=== PATIENT | female | born 1960 | race Caucasian/White ===

== ENCOUNTER 2022-08-23 15:31 | Outpatient (CLI) | payer OTHER, SELFPAY ==
[2022-08-23 22:57] LABS: Basophils Absolute Auto 0.05 K/uL (0.00-0.30); Basophils Percent Auto 0.7 % (0.0-3.0); Eosinophils Absolute Auto 0.23 K/uL (0.00-0.50); Eosinophils Percent Auto 3.2 % (0.0-7.0); Hematocrit 40.8 % (33.0-51.0); Hemoglobin* 13.5 gm/dL (12.0-16.0); Immature Granulocytes Abs Auto 0.01 K/uL (0.00-0.30); Immature Granulocytes Pct Auto 0.1 %; Lymphocytes Absolute Auto 2.55 K/uL (0.90-2.90); Mean Corpuscular HGB Conc 33 gm/dL (32-36); Mean Corpuscular Hemoglobin 32 pg (26-34); Mean Corpuscular Volume 96 fL (80-100); Monocytes Percent Auto 5.2 % (0.0-11.0); Neutrophils Absolute Auto 3.87 K/uL (1.7-7.0); Neutrophils Percent Auto 54.8 % (42.0-72.0); Platelet Count* 250 K/uL (140-440); RDW Coefficient of Variation % 12.3 % (11.5-15.5); Red Blood Count 4.27 m/uL (4.00-5.20); Slide Review Reflex No; White Blood Count* 7.08 K/uL (4.50-11.00)
[2022-08-23 23:47] LABS: Thyroid Stimulating Hormone* 0.677 uIU/mL (0.270-4.20)
[2022-08-23 23:55] LABS: Erythrocyte SedimentationRate* 2 mm/hr (2-20)
[2022-08-26 10:18] LABS: Rheumatoid Factor <10 IU/mL (0-14)
[2022-08-26 16:11] LABS: Anti-Nuclear Ab(ANA)IgG ELISA None Detected (None Detected)
== END 2022-08-23 15:32 | disposition home or self-care (01) ==
LOC: FBOREF 15:32
PROVIDERS: Otolaryngology; Visit Provider Family Medicine
DX: Z11.9 Encounter for screening for infectious and parasitic diseases, unspecified (principal); Z13.29 Encounter for screening for other suspected endocrine disorder
CPT/HCPCS: 84443; 85025; 85651; 86039; 86431; 86618

== ENCOUNTER 2022-09-01 15:52 | Outpatient (CLI) | payer OTHER, SELFPAY ==
--- NOTE | 2022-09-01 16:00 | CRLHL7_ITS ---
For Patients: As a result of the Century Cures Act, medical imaging exams and procedure reports are released immediately into your electronic medical record. You may view this report before your referring provider. If you have questions, please contact your health care provider. INDICATION: Sinusitis. TECHNIQUE: Noncontrast CT images acquired through the paranasal sinuses. COMPARISON: None. FINDINGS: No air-fluid levels to suggest acute sinusitis. Postsurgical changes of endoscopic sinus surgery including right maxillary antrostomy. Mild mucosal thickening in the maxillary sinuses. The left ethmoid infundibulum is opacified. The right maxillary outflow tract is patent. [id number] mucosal thickening in the right frontal sinus. Mild mucosal thickening in the frontal recesses. Mild mucosal thickening in a ethmoid air cells. Minimal mucosal thickening in the sphenoid sinuses. The sphenoethmoidal recesses are clear. Mild 2 mm leftward nasal septal deviation. No nasal cavity masses. The mastoid air cells are clear. Rounded, mildly hyperattenuating lesion along the right interhemispheric falx measuring approximately 1.8 cm (series 4, image 129). IMPRESSION: 1. Mild paranasal sinus mucosal disease. No air-fluid levels to suggest acute sinusitis. 2. Postsurgical changes of endoscopic sinus surgery. 3. Mild leftward nasal septal deviation. 4. Hyperattenuating lesion along the right interhemispheric falx is incompletely characterized. Contrast-enhanced brain MRI would be recommended for further evaluation if not previously performed. Please note that all CT scans at this facility use dose modulation, iterative reconstruction, and/or weight-based dosing when appropriate to reduce radiation dose to as low as reasonably achievable. Dictated by Antonio Dewitt MD @ 09/01/2022 6:03:38 PM (Electronically Signed)
== END 2022-09-01 15:53 | disposition home or self-care (01) ==
LOC: CT 15:54
PROVIDERS: Visit Provider Otolaryngology
DX: J32.9 Chronic sinusitis, unspecified (principal); J34.2 Deviated nasal septum; G93.9 Disorder of brain, unspecified
CPT/HCPCS: 70486

== ENCOUNTER 2022-09-27 13:46 | Outpatient (CLI) | payer OTHER, SELFPAY ==
--- NOTE | 2022-09-27 14:30 | CRLHL7_ITS ---
For Patients: As a result of the Century Cures Act, medical imaging exams and procedure reports are released immediately into your electronic medical record. You may view this report before your referring provider. If you have questions, please contact your health care provider. INDICATION: Right falx lesion. TECHNIQUE: Multiplanar multisequence MR imaging acquired through the brain prior to and following intravenous contrast. COMPARISON: CT sinus 09/01/2022. FINDINGS: Homogeneously enhancing dural-based mass along the mid right interhemispheric falx measuring 1.9 x 1.8 x 2.2 cm (AP/TR/CC). There is local mass effect on the right greater left parasagittal frontal lobes without parenchymal edema. Prominence of the ventricles and sulci compatible with mild diffuse cerebral volume loss. No midline shift or hydrocephalus. Minimal FLAIR hyperintensities in the supratentorial white matter may represent sequela of chronic microvascular ischemic changes. No pathologic intra-axial enhancement. No intracranial hemorrhage or pathologic extra-axial fluid collection. No diffusion restriction to suggest acute infarction. The major arterial flow voids of the skullbase are preserved. The globes are symmetric. [id number] maxillary sinus mucosal thickening. The mastoid air cells are clear. IMPRESSION: 1. Homogeneously enhancing 2.2 cm dural-based lesion along the mid right interhemispheric falx, most compatible with meningioma. There is mild local mass effect without parenchymal edema. 2. No acute intracranial abnormality. Dictated by Antonio Dewitt MD @ 09/27/2022 5:57:14 PM (Electronically Signed)
== END 2022-09-27 13:47 | disposition home or self-care (01) ==
PROVIDERS: Visit Provider Otolaryngology
DX: G93.9 Disorder of brain, unspecified (principal)
CPT/HCPCS: 70553; A9575